=== PATIENT | male | born 1960 | race Caucasian/White ===

== ENCOUNTER 2018-11-18 08:38 | Day surgery (SDC) | payer BC ==
[~2018-11-18 08:38] MED LIST: Lactated Ringers 1,000 ML IV SCH
[2018-11-18] MEDS ORDERED: Propofol 200 MG/20 ML SDV ONE ×2 (09:58→10:43)
[2018-11-18] MEDS ORDERED: fentaNYL 100 MCG/2 ML SDV ONE (09:58)
--- NOTE | 2018-11-18 14:46 | OR ---
PREOPERATIVE DIAGNOSES: Family history of colon cancer, personal history of polyps. POSTOPERATIVE DIAGNOSIS: Sigmoid diverticulosis, otherwise normal exam. PROCEDURE PROPOSED: Total flexible colonoscopy PROCEDURE DONE: Total flexible colonoscopy. INDICATION: This is a 58-year-old gentleman who comes in for colonic surveillance due to a personal history of polyps. He also has a history of father having had colon cancer. Last examination was 5 years ago. He denies any symptomatology. TECHNIQUE AND FINDINGS: The patient was brought to the endoscopy suite, placed in left lateral decubitus position. He was sedated per COLLECTION TECHNICIAN with propofol. The flexible video colonoscope was then passed transanally and under visualization advanced to the cecum. Examination revealed a normal ascending, transverse, descending, sigmoid, and rectal colon. There was no evidence of any polyps, but he did have sigmoid diverticulosis. The examination of the ascending, transverse, and descending colon was totally normal. The rectum was normal. It was just mainly through the sigmoid that he had the diverticulosis. He tolerated procedure well as the scope was then withdrawn. FINAL IMPRESSION: 1. Sigmoid diverticulosis, otherwise normal exam. 2. Family history of colon cancer-father. 3. Personal history of polyps. PLAN: The patient should continue the colonic surveillance every 5 years hereafter. SCM: 11/18/2018 10:57:30 MODL: 11/18/2018 14:41:23 /[id number]
== END 2018-11-18 12:00 | disposition home or self-care (01) ==
LOC: VM.SDS 08:38
PROVIDERS: ATTEND Surgery
DX: Z12.11 Encounter for screening for malignant neoplasm of colon (principal); K57.30 Diverticulosis of large intestine without perforation or abscess without bleeding; I10 Essential (primary) hypertension; E66.9 Obesity, unspecified; Z68.36 Body mass index [BMI] 36.0-36.9, adult; F32.9 Major depressive disorder, single episode, unspecified; E78.00 Pure hypercholesterolemia, unspecified; G47.33 Obstructive sleep apnea (adult) (pediatric); Z86.010 Personal history of colon polyps; Z79.899 Other long term (current) drug therapy; Z80.0 Family history of malignant neoplasm of digestive organs
CPT/HCPCS: 45378; J2704; J3010; J7120